=== PATIENT | female | born 1960 | race Caucasian/White ===

== ENCOUNTER 2016-10-09 16:42 | Emergency (ER) | payer OTHER ==
[~2016-10-09 16:42] MED LIST: ASPIRIN81 M1 PO; BIOFLEX TABLET1 EACH PO; CALCIUM + VITAM1 TAB PO; CIPRO PO; COREG3.125 MG PO; FLEXERIL10 M1 PO; HYDROCHLOROTHIA25 MG PO; LISINOPRIL10 MG PO; PAXIL PO; PYRIDIUM100 MG PO; VICODIN 5/1 TAB 5/50 PO; VOLTAREN75 MG PO; ZOCOR20 MG PO
== END 2016-10-09 18:53 | disposition home or self-care (01) ==
LOC: SED 16:42
DX: B07.8 Other viral warts (principal); I10 Essential (primary) hypertension; F41.9 Anxiety disorder, unspecified; Z90.710 Acquired absence of both cervix and uterus; Z79.82 Long term (current) use of aspirin; Z88.5 Allergy status to narcotic agent
CPT/HCPCS: 99283